=== PATIENT | male | born 1960 | race Two or more races ===

== ENCOUNTER 2017-11-29 08:10 | Emergency (ER) | payer OTHER ==
[~2017-11-29] VITALS: Ht 172.7 cm; Wt 81.6 kg
[2017-11-29 08:10] VITALS: BP 129/91
[2017-11-29] MEDS ORDERED: KETOROLAC TROMETHAMINE INJ 30 MG/ML VIAL ONE (08:21)
[2017-11-29] MEDS ORDERED: KETOROLAC TROMETHAMINE INJ 60 MG/2 ML VIAL IM ONE (08:30)
== END 2017-11-29 08:38 | disposition home or self-care (01) ==
LOC: ER 08:14
DX: M54.30 Sciatica, unspecified side (principal)
CPT/HCPCS: A4606; J1885; Z7610

== ENCOUNTER 2019-03-24 12:14 | Emergency (ER) | payer OTHER ==
[~2019-03-24] VITALS: Ht 172.7 cm; Wt 79.4 kg
[2019-03-24 12:19] VITALS: BP 146/97
== END 2019-03-24 12:57 | disposition home or self-care (01) ==
LOC: ER 12:17
DX: T22.112A Burn of first degree of left forearm, initial encounter (principal); X11.8XXA Contact with other hot tap-water, initial encounter; Y93.89 Activity, other specified; Y92.89 Other specified places as the place of occurrence of the external cause; Y99.0 Civilian activity done for income or pay
CPT/HCPCS: 99282; A6402

== ENCOUNTER 2019-11-16 08:28 | Outpatient (CLI) | payer OTHER, BC ==
[2019-11-16 08:48] LABS: BASOPHILS % (AUTO) 0.8 % (0.0-2.0); EOSINOPHILS % (AUTO) 1.8 % (0.0-6.0); HEMATOCRIT 42 % (39-51); HEMOGLOBIN 14.2 g/dL (13.5-17.5); LYMPHOCYTES # (AUTO) 1.8 /CMM (0.8-4.8); LYMPHOCYTES % (AUTO) 30.5 % (20.0-44.0); MEAN CORPUSCULAR HGB CONC 34 g/dl (31.0-36.0); MEAN CORPUSCULAR VOLUME 88 fL (80-96); MONOCYTES # (AUTO) 0.5 /CMM (0.1-1.30); MONOCYTES % (AUTO) 9.1 % (2.0-12.0); NEUTROPHILS # (AUTO) 3.3 /CMM (1.8-8.9); NEUTROPHILS % (AUTO) 57.8 % (43.0-81.0); PLATELET COUNT (AUTO) 182 /CMM (150-450); RED BLOOD CELL COUNT(AUTO) 4.72 MIL/uL (4.5-6.0); WHITE BLOOD COUNT (AUTO) 5.8 K/uL (4.3-11.0)
[2019-11-16 09:07] LABS: ALBUMIN 3.7 g/dL (3.4-5.0); BILIRUBIN,TOTAL 0.4 mg/dL (0.2-1.0); CALCIUM, SERUM 8.9 mg/dL (8.5-10.1); CREATININE 1.1 mg/dL (0.6-1.3); POTASSIUM 4.2 mmol/L (3.5-5.1); TOTAL PROTEIN, SERUM 7.4 g/dL (6.4-8.2)
[2019-11-16 09:18] LABS: PROSTATE SPECIFIC ANTIGEN SCR 1.21 ng/mL (0.00-4.00); THYROID STIMULATING HORMONE 3.151 uIU/mL (0.358-3.74)
== END 2019-11-16 23:59 | disposition home or self-care (01) ==
LOC: LAB 08:28
DX: Z00.00 Encounter for general adult medical examination without abnormal findings (principal)
CPT/HCPCS: 36415; 80053-TC; 80061-TC; 84153-TC; 84443-TC; 85025-TC

== ENCOUNTER 2023-04-22 08:10 | Emergency (ER) | payer BC, OTHER ==
[~2023-04-22] VITALS: Ht 170.2 cm; Wt 86.2 kg
[2023-04-22 08:14] VITALS: BP 130/76
--- NOTE | 2023-04-22 08:16 | NUR ---
THE PATIENT BIBS FOR R 4TH FINGER SKIN TEAR, SWELLING S/P HITTING IT ON A TABLE YESTERDAY. DENIES PAIN. WILL CONTINUE TO MONITOR THE PATIENT.
--- NOTE | 2023-04-22 10:02 | NUR ---
Patient discharged to home in stable condition. Written and verbal after care instructions given. Patient verbalizes understanding of instruction.
== END 2023-04-22 10:03 | disposition home or self-care (01) ==
LOC: ER 08:17
DX: S61.215A Laceration without foreign body of left ring finger without damage to nail, initial encounter (principal); W22.8XXA Striking against or struck by other objects, initial encounter; Y93.89 Activity, other specified; Y92.89 Other specified places as the place of occurrence of the external cause; Y99.8 Other external cause status
CPT/HCPCS: 73140-TC